=== PATIENT | female | born 1995 | race Caucasian/White ===

== ENCOUNTER 2019-08-27 09:56 | Inpatient (IN) | payer OTHER, MEDICAID, SELFPAY ==
[2019-08-27] VITALS (20 sets, daily range): BP systolic 99–147; BP diastolic 58–89; PULSE 56–90; RESP 12–17; TEMP 36–36.9; O2SAT 97–100; BMI 29.1
--- NOTE | 2019-08-27 06:18 | HP_ITS ---
DATE OF SERVICE: 08/27/2019 HISTORY OF PRESENT ILLNESS: The patient is a 23-year-old, G3, P2-0-0-2 at 38 weeks and 4 days gestation coming in for repeat and due to history of two prior C-sections and intrauterine growth restriction. She actually had her first visit in our office on August 25, 2019, but had received care. First at the [facility], and then with [facility]. She is currently on methadone for opioid addiction. She is feeling occasional contractions. No vaginal bleeding. No leakage of fluid. Baby has been moving well. She reports intrauterine growth restriction, but denies any other complications during this . MEDICAL HISTORY: Hepatitis C, anxiety, opioid addiction. CURRENT MEDICATIONS: 1. Methadone 100 mg twice daily. 2. Buspirone 15 mg twice a day. 3. vitamin. 4. Colace. ALLERGIES: NO KNOWN DRUG ALLERGIES. SURGICAL HISTORY: x2. First for failed induction of labor and she has had breast augmentation. SOCIAL HISTORY: She denies tobacco or alcohol use during the . She denies using any street drugs during this , but is on methadone and she denies any history of IV drug use. 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 REVIEW OF SYSTEMS: Negative. PHYSICAL EXAMINATION: VITAL SIGNS: Her weight is 183, blood pressure 132/83. GENERAL: No apparent distress. HEART: Regular rate and rhythm. LUNGS: Clear to auscultation. ABDOMEN: Gravid, soft, nontender, nondistended. heart rate 140. Cervix was fingertip dilated, thick, and -2 station. EXTREMITIES: Nontender with trace edema. IMAGING: Ultrasound today, she had normal Dopplers of the umbilical artery and a biophysical profile of 8/8. ASSESSMENT AND PLAN: 1. G3, P2-0-0-2 at 38 weeks and 4 days with history of 2 prior C-sections and intrauterine growth restriction. There is a note from last week from Maternal Medicine recommending her deliver and due to the IUGR and at that time she had a BPP of 6/10 and she declined, but she does agree to deliver this week, so plan is for repeat . 2. status is overall reassuring with a BPP of 8/8 on August 25. 3. GBS status is unknown. It was done in the office on August 25. 4. Opioid addiction on methadone. Plan is to check drug screen and have social work involved, as she does not have custody of her other children. 5. Hepatitis C. She reports not having any issues and had a very low level. D I MT: Sunil
[2019-08-27 10:55] LABS: Basophils Percent Auto 0.3 % (0.2-1.2); Eosinophils Absolute Auto 0.1 K/mm3 (0-0.3); Eosinophils Percent Auto 0.7 % (0-4.4); Hematocrit 37.3 % (37.0-47.0); Hemoglobin 12.4 g/dL (12.0-15.0); Immature Granulocyte Absolute 0.05 K/mm3 (0.00-0.031); Immature Granulocyte Percent A 0.5 % (0-0.5); Lymphocytes Absolute Auto 1.54 K/mm3 (0.9-3.2); Lymphocytes Percent Auto 16.7 % (18.3-44.2); Mean Corpuscular HGB Conc 33.2 g/dl (32-36); Mean Corpuscular Hemoglobin 28.2 pg (26-34); Mean Corpuscular Volume 84.8 fl (80-100); Mean Platelet Volume 10.1 fl (7.4-10.4); Monocytes Absolute Auto 0.7 K/mm3 (0.1-0.6); Monocytes Percent Auto 7.1 % (2.6-8.5); Neutrophils Absolute Auto 6.9 K/mm3 (1.3-6.7); Neutrophils Percent Auto 74.7 % (45.5-73.1); Platelet Count Result 191 k/mm3 (150-375); Red Cell Distribution Width 13.1 % (11.5-14.5); White Blood Count 9.2 K/mm3 (4.5-10.0)
[2019-08-27] MEDS: LACTATED RINGERS 1,000 ML 999 ML IV CONT (11:11)
--- NOTE | 2019-08-27 11:36 | P.PNAN_ITS ---
Anes - Initial Pre Proc Eval Procedure: Operation Date: 08/27/19 12:00 Proposed Procedures p Repeat Section - Eve Light MD Date/Time: 08/27/19 11:36 Surgeon: Eve Light MD Pre Op Diagnosis: PRE ADMIT Patient Data Age: 23 Gender: F Height: Weight: Last Vital Signs Pulse 83 08/27/19 11:13 BP 125/83 08/27/19 11:13 Allergies Allergy/AdvReac Type Severity Reaction Status Date / Time No Known Allergies Allergy Unverified 04/24/16 12:08 Laboratory Tests 08/27/19 08/27/19 10:40 10:40 WBC 9.2 K/mm3 K/mm3 (4.5-10.0) RBC 4.40 M/mm3 M/mm3 (4.2-5.4) Hgb 12.4 g/dL g/dL (12.0-15.0) Hct 37.3 % % (37.0-47.0) MCV 84.8 fl fl (80-100) MCH 28.2 pg pg (26-34) MCHC 33.2 g/dl g/dl (32-36) RDW 13.1 % % (11.5-14.5) Plt Count 191 k/mm3 k/mm3 (150-375) MPV 10.1 fl fl (7.4-10.4) Immature Gran % (Auto) 0.5 % % (0-0.5) Neut % (Auto) 74.7 % H % (45.5-73.1) Lymph % (Auto) 16.7 % L % (18.3-44.2) [place] % (Auto) 7.1 % % (2.6-8.5) Eos % (Auto) 0.7 % % (0-4.4) Baso % (Auto) 0.3 % % (0.2-1.2) Lymph # (Auto) 1.54 K/mm3 K/mm3 (0.9-3.2) [place] # (Auto) 0.7 K/mm3 H K/mm3 (0.1-0.6) Eos # (Auto) 0.1 K/mm3 K/mm3 (0-0.3) Baso # (Auto) 0.0 K/mm3 K/mm3 (0.0-0.1) Abs Immat Gran (auto) 0.05 K/mm3 H K/mm3 (0.00-0.031) Absolute Neuts (auto) 6.9 K/mm3 H K/mm3 (1.3-6.7) Absolute Nucleated RBC 0.0 K/mm3 K/mm3 (0.0-0.012) Nucleated RBC % 0.0 % % (0.0-0.2) RPR Pending Patient hx anesthesia problems: none Family hx anesthesia problems: none PMFSH Past Medical History Medical History Opioid dependence Anes - Eval Final PreProcedure Day of Procedure 08/27/19 11:36 Patient weight: overweight Heart: regular rate and rhythm Lungs: clear to auscultation Airway: Mallampati scale class II Neurological: alert and oriented Last oral intake: >/= 8 hours ASA classification: III Emergent: no Anesthetic plan: proceed Anesthesia type and monitoring: regional spinal and standard monitoring Informed Consent: The patient's anesthetic plan and its attendant risks and benefits were discussed with the patient/family/POA. Questions were solicited and answers provided to the satisfaction of the patient/family/POA.
--- NOTE | 2019-08-27 12:09 | WPDHPUPDATE1 ---
History and Physical Update Update Date/Time: 08/27/19 12:09 History and Physical has been reviewed, including an updated exam of the patient. There are NO changes in the patient's condition. Risks, benefits, and alternatives have been discussed and questions answered. Patient agrees to proceed with procedure.
--- NOTE | 2019-08-27 12:09 | LDADM ---
This patient, Tamar Bourne, was admitted to [facility] on 08/27/19 at 09:56. Plans for labor, pain management and were discussed with patient. Patient/family oriented to hospital policies and general routines including ID bracelet, bed and alarms, visiting hours, pain management, procedures, bathroom and other care routines, personal items, smoking policy, room service/diet and guest tray routines, infant security routines, and visiting hours. Patient/Family are encouraged to report perceived risks to care and to ask questions if they do not understand what they are told or what they should do. See OBIX for further documentation.
--- NOTE | 2019-08-27 12:12 | PM.OP ---
Procedure Note - Brief Procedure Note - Brief Date of procedure: 08/27/19 Pre-op diagnosis: PRE ADMIT at 38+3, prior C section X 2, IUGR Post-op diagnosis: same Procedure performed: Repeat LTCS Anesthesia: spinal Surgeon: Eve Light MD Estimated blood loss (mL): 245 Drains: Yes (Lucio) Packing: No Pathology: yes Complications: No immediate complications Condition: stable Disposition: floor Findings: Female infant, cephalic, Apgars 7/8, weight 4# 11oz; normal uterus, tubes, ovaries
[2019-08-27 12:59] LABS: Amphetamine Screen Urine Negative (Negative); Barbiturate Screen Urine Negative (Negative); Benzodiazepines Screen Urine Negative (Negative); Cannabinoid Screen Urine Negative (Negative); Cocaine Screen Urine Negative (Negative); Methadone Screen Urine Positive (Negative); Opiate Screen Urine Negative (Negative); Phencyclidine Screen Urine Negative (Negative)
[2019-08-27] MEDS: KETOROLAC 30 MG/ML VIAL (*BKC) IV PUSH (15:30)
--- NOTE | 2019-08-27 17:22 | OP_ITS ---
DATE OF PROCEDURE: 08/27/2019 PREOPERATIVE DIAGNOSIS: Intrauterine at 38 weeks and 3 days with history of 2 prior C-sections and intrauterine growth restriction. POSTOPERATIVE DIAGNOSES: Intrauterine at 38 weeks and 3 days with history of 2 prior C-sections and intrauterine growth restriction. PROCEDURE PERFORMED: Repeat low transverse section. ANESTHESIA: Spinal. ESTIMATED BLOOD LOSS: 245 mL. COMPLICATIONS: None. FINDINGS: Female cephalic presentation. Apgars 7 and 8. Weight 4 pounds 11 ounces. Normal uterus, tubes, and ovaries. INDICATIONS: A 23-year-old G3, P2-0-0-2 at 38 weeks and 3 days gestation, came to our office for her 1st care visit with us 2 days ago. She had been seeing Maternal Medicine at [facility] and had been diagnosed with intrauterine growth restriction. She had been recommended to deliver last week by [facility] due to full term IUGR and a biophysical profile of 6/10, but she refused and sought care elsewhere. She did have a biophysical profile in the office on the , which was 8/8 with normal umbilical artery Dopplers, so we scheduled her for a repeat on August 27, 2 days later. DESCRIPTION OF PROCEDURE: For the procedure, she was taken to the operating room, where spinal anesthesia was obtained and found to be adequate. She was prepared and draped in the normal sterile fashion in the dorsal supine position with a leftward tilt. A Pfannenstiel skin incision was made over her prior incision with a scalpel and extended to the underlying layer of fascia. The rectus muscles were dissected in the midline. The peritoneum was entered sharply and extended inferiorly and superiorly with good visualization of the bladder. The bladder blade was inserted. The vesicouterine peritoneum was tented up, and entered sharply with the Metzenbaum scissors and extended laterally. The bladder flap was created digitally. The bladder blade was reinserted. The lower uterine segment was incised in a transverse fashion with scalpel and extended digitally in a cephalocaudad direction. The membranes were ruptured with clear fluid noted. The infant's head was delivered atraumatically. The shoulders and body were delivered easily. The cord was clamped and cut and the infant was passed to the waiting nurse. Cord gas and cord blood were obtained. The placenta was manually extracted. The uterus was exteriorized and cleared of all clots and debris. The uterine incision was closed using 0 Vicryl in a running locked fashion. A 2nd layer of the same suture was used for hemostasis and reinforcement. The uterus was then returned to the abdomen. The gutters were cleared of all clots and debris. The uterine incision was reinspected and found to be hemostatic. The rectus muscles were inspected. Any bleeding points were cauterized. The rectus muscles were reapproximated using a 0 Vicryl [id number] suture. The fascia was then closed using 0 Vicryl in a running fashion. Subcutaneous tissue was irrigated. All bleeding points were cauterized and the skin was closed using INSORB absorbable venkat. Joce I MT: Sunil
[2019-08-27] MEDS: SIMETHICONE 80 MG TAB.CHEW PO (21:01)
[2019-08-28 00:16] VITALS: BP 129/75; PULSE 70; RESP 18; TEMP 36.6
[2019-08-28 04:51] VITALS: BP 127/82; PULSE 80; RESP 17; TEMP 37
[2019-08-28] MEDS: SIMETHICONE 80 MG TAB.CHEW PO ×3 (05:02→11:42)
[2019-08-28] MEDS: IBUPROFEN 600 MG TABLET PO ×3 (05:02→16:07)
[2019-08-28] MEDS: MULTIVIT/MIN/PREN/FOL AC/IRON TABLET 1 TAB PO (06:43)
[2019-08-28] MEDS: DOCUSATE SODIUM 100 MG CAPSULE PO ×2 (06:44→16:06)
[2019-08-28 06:57] LABS: Basophils Percent Auto 0.3 % (0.2-1.2); Eosinophils Absolute Auto 0.1 K/mm3 (0-0.3); Eosinophils Percent Auto 0.8 % (0-4.4); Hematocrit 32.7 % (37.0-47.0); Hemoglobin 10.6 g/dL (12.0-15.0); Immature Granulocyte Absolute 0.06 K/mm3 (0.00-0.031); Immature Granulocyte Percent A 0.6 % (0-0.5); Lymphocytes Percent Auto 19.5 % (18.3-44.2); Mean Corpuscular HGB Conc 32.4 g/dl (32-36); Mean Corpuscular Hemoglobin 27.7 pg (26-34); Mean Corpuscular Volume 85.4 fl (80-100); Mean Platelet Volume 11.1 fl (7.4-10.4); Monocytes Absolute Auto 0.6 K/mm3 (0.1-0.6); Monocytes Percent Auto 5.9 % (2.6-8.5); Neutrophils Absolute Auto 7.1 K/mm3 (1.3-6.7); Neutrophils Percent Auto 72.9 % (45.5-73.1); Platelet Count Result 176 k/mm3 (150-375); Red Blood Count 3.83 M/mm3 (4.2-5.4); Red Cell Distribution Width 13.3 % (11.5-14.5); White Blood Count 9.7 K/mm3 (4.5-10.0)
--- NOTE | 2019-08-28 07:24 | P.PNOB_ITS ---
OB - PN: Subj Subjective Date/time seen: 08/28/19 07:24 OB - PN: Obj Data Labs CBC & Chem 7: 08/28/19 05:36 Labs: Laboratory Results - last 24 hr 08/27/19 08/27/19 08/27/19 10:40 10:41 12:31 WBC 9.2 RBC 4.40 Hgb 12.4 Hct 37.3 MCV 84.8 MCH 28.2 MCHC 33.2 RDW 13.1 Plt Count 191 MPV 10.1 Immature Gran % (Auto) 0.5 Neut % (Auto) 74.7 H Lymph % (Auto) 16.7 L [place] % (Auto) 7.1 Eos % (Auto) 0.7 Baso % (Auto) 0.3 Lymph # (Auto) 1.54 [place] # (Auto) 0.7 H Eos # (Auto) 0.1 Baso # (Auto) 0.0 Abs Immat Gran (auto) 0.05 H Absolute Neuts (auto) 6.9 H Absolute Nucleated RBC 0.0 Nucleated RBC % 0.0 Urine Opiates Screen Negative Urine Methadone Screen Positive A Ur Barbiturates Screen Negative Ur Phencyclidine Scrn Negative Ur Amphetamine Screen Negative U Benzodiazepines Scrn Negative Urine Cocaine Screen Negative U Cannabinoids Screen Negative Blood Type O Positive Antibody Screen Negative 08/28/19 05:36 WBC 9.7 RBC 3.83 L Hgb 10.6 L Hct 32.7 L MCV 85.4 MCH 27.7 MCHC 32.4 RDW 13.3 Plt Count 176 MPV 11.1 H Immature Gran % (Auto) 0.6 H Neut % (Auto) 72.9 Lymph % (Auto) 19.5 [place] % (Auto) 5.9 Eos % (Auto) 0.8 Baso % (Auto) 0.3 Lymph # (Auto) 1.90 [place] # (Auto) 0.6 Eos # (Auto) 0.1 Baso # (Auto) 0.0 Abs Immat Gran (auto) 0.06 H Absolute Neuts (auto) 7.1 H Absolute Nucleated RBC 0.0 Nucleated RBC % 0.0 Urine Opiates Screen Urine Methadone Screen Ur Barbiturates Screen Ur Phencyclidine Scrn Ur Amphetamine Screen U Benzodiazepines Scrn Urine Cocaine Screen U Cannabinoids Screen Blood Type Antibody Screen OB - PN A/P Plan day: 1 Plan: routine care Time Spent With Patient Time: Total time spent is greater than 50% in coordination of care (as documented) at patient's floor/unit and/or counseling patient: Review of Systems Review of Systems: All systems reviewed & are unremarkable except as noted in HPI and below Exam Const: General: comfortable Resp: Effort & Inspection: normal respiratory effort Psych: Appearance: grossly normal Attitude: cooperative Judgement: Good judgement present (Psych)
[2019-08-28 08:00] VITALS: BP 119/72; PULSE 72; RESP 18; TEMP 37.2; O2SAT 100
[2019-08-28 09:02] LABS: Rapid Plasma Reagin Non-Reactive (NonReactive)
--- NOTE | 2019-08-28 09:09 | PC.NURSE ---
08/27/19@ 1700 Xin Barron RN entered room in response to alarm beeping and found patient taking liquid from a vial. when questioned pt admitted to taking her morning dose of methadone . Pt had stated to labor nurses that she did not have any methadone and was under the understanding that we would supply the needed medication. This RN was given permission by patient to search her belongings, including her purse for any additional doses, none were found. Dr. Light called and orders received.
[2019-08-28] MEDS: busPIRone HCL 10 MG, busPIRone HCL 5 MG 15 MG PO (10:28)
--- NOTE | 2019-08-28 11:27 | PC.NURSE ---
0800 Informed mother of low blood sugar results and low temp and wordpress developer order to transfer baby back to level 2 nursery.
[2019-08-28 11:35] VITALS: BP 111/76; PULSE 70; RESP 16; TEMP 37.1; O2SAT 98
--- NOTE | 2019-08-28 12:39 | PCCCNOTE ---
Addendum entered by JOYCE Vela 08/28/19 17:04: [place] [employer]CF[employer] called and stated [place] [facility] will be overseeing the case. Addendum entered by JOYCE Vela 08/28/19 15:33: DCFS contacted cc and they will make a report and investigate. Intake ID: [id number] , Reference ID: [id number] Original Note: Received consult regarding pt.'s substance use. Met with pt. at bedside. Pt. stated she has been using Methadone through [facility] since her incarceration. Pt. was in assisted for drug charges and was released in 2018. Pt. stated she is off of parole. Pt. stated she has been in contact with [facility] in [place] and has a liquid floor and wall applier Zohreh Owens [phone]. Zohreh is aware pt. had the baby and the father of the baby may not want to sign his parental rights away. Zohreh is also aware [facility] has been contacted. Per pt.'s RN, pt. is receiving Methadone here, but was found taking her own Methadone in her room. Baby is also experiencing withdrawal symptoms and has been in the level II nursery, per nursing staff. Pt. is aware [facility] will be contacted and stated she signed off her parental rights to her 2 older children and her father and paternal grandmother have custody of the boys. Pt. has also been in contact with [facility] in [place], [place] as a treatment facility for mothers with babies [phone]. [facility] was contacted. Ref # [id number]
--- NOTE | 2019-08-28 14:25 | PC.NURSE ---
Consulted with patient, mother wishes to put to breast. Mother reports she breastfed last child for several months. Discussed infant is fussy and have some difficulties with suck swallow. Reviewed feeding cues, frequencies, duration of feedings, feeding elimination flow sheet, and signs of adequate intake. Demonstrated stimulation techniques to wake for feeding. Assisted with infant to breast. Reviewed positioning/alignment in cross cradle, holding breast and asymmetrical latch on. Infant was able to latch correctly. nursed eagerly with steady draws for short bursts was on and off several times over the 10 minutes of observation. Reviewed signs of a correct latch, effective nursing and suck swallow ratio. Nipple care reviewed. Instructed mother to work with for 15 minutes, then to bottle feed 20 mls, calling out for assist if unable to feed. Instructed mother to call out for RN assistance if she is unable to latch for feeding or she has discomfort with nursing. Instructed feeding should be initiated three hours from start of last feeding or if feeding cues are noted before. Mother voiced understanding of information shared.
--- NOTE | 2019-08-28 16:09 | PC.NURSE ---
Patient viewed the discharge video Mother & Baby Care, The First Two Weeks . Patient was given the opportunity and encouraged to ask questions. Patient verbalized understanding of information shared and has been given the mother/baby guide for home reference.
--- NOTE | 2019-08-28 16:12 | WPDANLDPN2 ---
Anes-Prog Note L&D Date/Time: 08/28/19 16:12 Comfortable throughout: section Neuraxial method: spinal Epidural/Spinal procedure site: tender (No redness at site, pt complaints of tenderness at site. ) Neuro status: Neuro function grossly intact. Cardiovascular status: normal Respiratory status: normal Airway patency: baseline Mental status: baseline Post-Op hydration status: normal Vital Signs: Last Vital Signs Temp 37.1 C 08/28/19 11:35 Pulse 70 08/28/19 11:35 Resp 16 08/28/19 11:35 BP 111/76 08/28/19 11:35 Pulse Ox 98 08/28/19 11:35 Pain score (VAS): 0/10. Patient resting up to bedside, appears comfortable. Support person at bedside. I/O: Intake & Output 08/28/19 08/28/19 08/28/19 07:59 15:59 23:59 Intake Total 800 Output Total 1625 Balance -825 Post-procedural complaints: none Patient feedback: Patient satisfied with anesthetic care.
--- NOTE | 2019-08-28 16:14 | WPDANLDNPN2 ---
Anes-Prog Note L&D-Neuraxial Date/Time: 08/28/19 16:14 Neuraxial medications: intrathecal PF morphine Opiod-related complaints: none Patient feedback: Patient satisfied with post-operative pain management.
[2019-08-28 21:00] VITALS: BP 137/78; PULSE 72; RESP 18; TEMP 37.2; O2SAT 98
[2019-08-29] MEDS: IBUPROFEN 600 MG TABLET PO ×2 (03:14→09:56)
[2019-08-29] MEDS: busPIRone HCL 10 MG, busPIRone HCL 5 MG 15 MG PO (09:46)
[2019-08-29] MEDS: DOCUSATE SODIUM 100 MG CAPSULE PO (09:49)
[2019-08-29] MEDS: MULTIVIT/MIN/PREN/FOL AC/IRON TABLET 1 TAB PO (09:57)
[2019-08-29 11:20] VITALS: BP 140/87; PULSE 91; RESP 16; TEMP 36.7; O2SAT 96
--- NOTE | 2019-08-29 11:27 | PM.OBDSVD ---
DS: Diagnosis Discharge Diagnosis (1) Opiate dependence, continuous: Code(s): F11.20 - Opioid dependence, uncomplicated Status: Acute (2) Term delivered: Code(s): O80 - Encounter for full-term uncomplicated delivery Status: Acute (3) delivery delivered: Code(s): O82 - Encounter for delivery without indication Status: Acute OB - DS: Summary OB Procedures : Ultrasound OB Procedures Intrapartum: OB Procedures: : None Peripartum Data Delivery Method: Section Procedures: Procedures Operation Date: 08/27/19 12:00 Actual Procedures Side Surgeon p Repeat Section Eve Light MD Status at Discharge Functional status at discharge: independent ambulation Time Spent with Patient Time attestation: Total time spent providing and/or coordinating discharge services: DS: Data Data Completed and Pending Pending studies at discharge: Pending at discharge 08/27/19 13:41 Surgical [PTH] Routine Discharge Plan Discharge Discharging Clinician: Claude Carlson Patient Disposition: Home, Self-Care Activity: pelvic rest Diet: regular Patient Instructions: Antibiotic Form Stand Alone Forms: General Discharge Information Follow-up/Referrals: Claude Carlson MD [Physician] - Discharge Medications: New hydrocodone-acetaminophen 5-325 mg tablet 1 - 2 tablet PO Q4H PRN (Reason: pain) Qty: 25 RF: 0 Continued buspirone 15 mg tablet 15 mg PO DAILY RF: 0 Daily 1 tab-cap BYMOUTH DAILY RF: 0 Colace 1 tablet BYMOUTH DAILY RF: 0 Methadone Intensol 105 mg BYMOUTH BID RF: 0 Date of admission: 08/27/19 09:56 Primary Care Provider: UNKNOWN,DOCTOR Admitting Provider: Eve Light Attending physician on admission: Eve Light
--- NOTE | 2019-08-29 11:29 | P.PNOB_ITS ---
OB - PN: Subj Subjective Date/time seen: 08/29/19 11:29 Patient comments: no complaints, pain well controlled, incisional pain, tolerating diet and flatus present OB - PN: Obj Data Labs CBC & Chem 7: 08/28/19 05:36 OB - PN A/P Plan day: 2 Plan: routine care Comments: POD#2 LTCS - no problems, to d/c due to baby being transfered Time Spent With Patient Time: Total time spent is greater than 50% in coordination of care (as documente d) at patient's floor/unit and/or counseling patient: Exam Const: General: comfortable, no acute distress and alert Resp: Effort & Inspection: normal respiratory effort Auscultation: no crackles, no rales and no rhonchi Cardio: Rate: regular rate Heart sounds: no click, no murmurs and no rubs GI: Inspection: non-distended GI Palp: No Tenderness to palpation present (GI) Auscultation: normal bowel sounds Other: Incision - CDI Extrem: General: normal to inspection, no pedal edema and no calf tenderness
--- NOTE | 2019-08-29 12:53 | PC.NURSE ---
Called Niesha Quiñones with DCFS to inform her of pts D/C. No answer, left a VM.
[2019-08-31 08:02] VITALS: BP 127/78; PULSE 71; RESP 20; TEMP 36.9
== END 2019-08-29 12:35 | disposition home or self-care (01) | DRG 787 ==
LOC: ANHOBPP 10:00 → ANHOB2 08-29 11:26 → ANHOBPP 09-01 12:40
PROVIDERS: Admitting Provider Obstetrics & Gynecology; Visit Provider Obstetrics & Gynecology
PROC: 10D00Z1 Extraction of Products of Conception, Low, Open Approach (ICD-10-PCS; CPT 59514; principal; 2019-08-27 12:00)
DX: O34.211 Maternal care for low transverse scar from previous cesarean delivery (principal); F11.20 Opioid dependence, uncomplicated; Z3A.38 38 weeks gestation of pregnancy; Z37.0 Single live birth; Z23 Encounter for immunization; Z28.21 Immunization not carried out because of patient refusal; O36.5930 Maternal care for other known or suspected poor fetal growth, third trimester, not applicable or unspecified
CPT/HCPCS: 36415; 80307; 85025; 86592; 86850; 86900; 86901; 88307; A9270; J0131; J1200; J1885; J2250; J2274; J2405; J2590; J7120